=== PATIENT | female | born 1960 | race Caucasian/White ===

== ENCOUNTER 2019-01-18 09:07 | Emergency (ER) | payer BC, OTHER ==
[~2019-01-18] VITALS: Ht 157.5 cm; Wt 78.0 kg
[~2019-01-18 09:07] MED LIST: [UNRECOGNIZED DRUG - REMARK]
[2019-01-18 09:13] VITALS: Ht 157.5 cm; Wt 78.0 kg
[2019-01-18] MEDS ORDERED: KETOROLAC 30 MG INJ IV STA (09:45)
[2019-01-18] MEDS ORDERED: SOD CHLORIDE 0.9% 1,000 ML IV STA (09:45)
[2019-01-18] MEDS ORDERED: ACETAMINOPHEN 500 MG TAB PO STA (09:45)
[2019-01-18] MEDS ORDERED: CIPR500T4 PO (10:58)
[2019-01-18] MEDS ORDERED: IBUP800T48 PO (10:58)
[2019-01-18] MEDS ORDERED: CEFTRIAXONE 1 GM/50 ML (PMX) 50 ML IVPB ONE (11:00)
--- NOTE | 2019-01-18 11:39 | ERD ---
ER Documentation Chief Complaint Chief Complaint fever x 4 days,runny nose before HPI Very pleasant 58-year-old female history of diabetes and hypertension who presents to the emergency room complaining of fever for 4 days. The patient describes persistent fever. She does note a mild runny nose but no cough or congestion. She notes mild urinary urgency and some lumbar back discomfort. She denies any falls or injuries, no recent travel or immobilization. She denies any rash or neck stiffness. ROS All systems reviewed and are negative except as per history of present illness. Medications Home Meds Active Scripts Azithromycin* (Azithromycin*) 250 Mg Tablet, 250 MG PO DAILY, #4 TAB Prov:SUBHASH RODAS MD 01/18/19 Ibuprofen* (Motrin*) 800 Mg Tab, 800 MG PO Q6H PRN for PAIN AND OR ELEVATED TEMP, #30 TAB Prov:SUBHASH RODAS MD 01/18/19 Ciprofloxacin Hcl* (Ciprofloxacin Hcl*) 500 Mg Tablet, 500 MG PO BID for 10 Da ys, TAB Prov:SUBHASH RODAS MD 01/18/19 Reported Medications [No Nick Rx Meds] No Conflict Check 12/14/10 Allergies Allergies: Coded Allergies: No Known Allergy (Verified , 12/05/12) PMhx/Soc Medical and Surgical Hx: pt denies Medical Hx, pt denies Surgical Hx History of Surgery: No Anesthesia Reaction: No Hx Neurological Disorder: No Hx Respiratory Disorders: No Hx Cardiac Disorders: No Hx Psychiatric Problems: No Hx Miscellaneous Medical Probl: No Hx Alcohol Use: No Hx Substance Use: No Hx Tobacco Use: No Smoking Status: Never smoker FmHx Family History: No diabetes Physical Exam Vitals Vital Signs Date Temp Pulse Resp B/P (MAP) Pulse Ox O2 O2 Flow FiO2 Time Delivery Rate 01/18/19 99.5 91 20 102/58 99 Room Air 11:30 (73) 01/18/19 102.3 10:11 01/18/19 102.8 108 18 134/68 95 09:13 (90) Physical Exam General: Well developed, well nourished, no acute distress Head: Normocephalic, atraumatic. Eyes: Pupils equally reactive, EOM intact ENT: Moist mucous membranes Neck: Supple, no lymphadenopathy Respiratory: Lungs clear bilaterally, no distress Cardiovascular: RRR, no murmurs, rubs, or gallops Abdominal: Soft, non-tender, non-distended, no peritoneal signs, no tenderness McBurney's point Back: No CVAT : Deferred MSK: No edema, no unilateral swelling, 5/5 strength Neurologic: Alert and oriented, moving all extremities, normal speech, no focal weakness, no cerebellar signs, no meningismus Skin: No rash Psych: Normal mood Result Diagram: 1960 01/18/19 0959 Results 24 hrs Laboratory Tests Test 01/18/19 09:59 White Blood Count 15.2 10^3/ul Red Blood Count 4.08 10^6/ul Hemoglobin 12.1 g/dl Hematocrit 35.3 % Mean Corpuscular Volume 86.5 fl Mean Corpuscular Hemoglobin 29.7 pg Mean Corpuscular Hemoglobin Concent 34.3 g/dl Red Cell Distribution Width 11.9 % Platelet Count 236 10^3/UL Mean Platelet Volume 9.8 fl Immature Granulocytes % 0.500 % Neutrophils % 85.1 % Lymphocytes % 7.1 % Monocytes % 7.0 % Eosinophils % 0.1 % Basophils % 0.2 % Nucleated Red Blood Cells % 0.0 /100WBC Immature Granulocytes # 0.080 10^3/ul Neutrophils # 13.0 10^3/ul Lymphocytes # 1.1 10^3/ul Monocytes # 1.1 10^3/ul Eosinophils # 0.0 10^3/ul Basophils # 0.0 10^3/ul Nucleated Red Blood Cells # 0.0 10^3/ul Urine Color YELLOW Urine Clarity SLIGHTLY CLOUDY Urine pH 5.0 Urine Specific [place] 1.023 Urine Ketones 2+ mg/dL Urine Nitrite NEGATIVE mg/dL Urine Bilirubin NEGATIVE mg/dL Urine Urobilinogen 1+ mg/dL Urine Leukocyte Esterase 2+ Darlin/ul Urine Microscopic RBC 4 /HPF Urine Microscopic WBC 28 /HPF Urine Transitional Epithelial Cells FEW /HPF Urine Mucus FEW /HPF Urine Hemoglobin 1+ mg/dL Urine Glucose NEGATIVE mg/dL Urine Total Protein NEGATIVE mg/dl Sodium Level 136 mmol/L Potassium Level 3.8 mmol/L Chloride Level 100 mmol/L Carbon Dioxide Level 22 mmol/L Anion Gap 14 Blood Urea Nitrogen 13 mg/dl Creatinine 0.75 mg/dl Est Glomerular Filtrat Rate mL/min > 60 mL/min Glucose Level 173 mg/dl Calcium Level 8.9 mg/dl Current Medications Medications Dose Sig/Ramu Start Time Status Last (Trade) Ordered Route PRN Stop Time Admin Dose Reason Admin Sodium 1,000 ml @ Q1H STAT 01/18/19 DC 01/18/19 Chloride 1,000 mls/hr IV 09:45 10:10 01/18/19 10:44 Ketorolac 30 mg ONCE STAT 01/18/19 DC 01/18/19 Tromethamine IV 09:45 10:10 (Toradol) 01/18/19 09:46 1,000 mg ONCE STAT 01/18/19 DC 01/18/19 Acetaminophen PO 09:45 10:11 (Tylenol 01/18/19 09:46 Tab) Ceftriaxone 50 ml @ ONCE ONCE 01/18/19 DC 01/18/19 Sodium 100 mls/hr IVPB 11:00 11:28 01/18/19 11:29 500 mg ONCE ONCE 01/18/19 01/18/19 Azithromycin PO 12:00 11:50 (Zithromax) 01/18/19 12:01 Procedures/MDM EKG, MONITORS, & DIAGNOSTIC IMAGING: Chest x-ray: I reviewed and interpreted a 1 view of the chest Mediastinum: No enlargement Cardiac silhouette: No cardiomegaly Airspace: Possible right lower lobe infiltrate Bones: No evidence of fracture LAB INTERPRETATION: I reviewed the laboratory testing and it shows WBC of 15 with left shift, normal bicarb, urinalysis concerning for UTI MEDICAL DECISION MAKING: The patient presents with minimal symptoms other than mild rhinorrhea with elevated fever and myalgia. Patient differential is broad, likely viral process but given comorbidities consider possible pneumonia versus urinary tract infection. Benign abdominal exam without concern for acute intra-abdominal process. Patient has no respiratory distress, good oxygen saturations and is otherwise extremely well-appearing. No signs or symptoms concerning for central nervous system infection. Bacteremia and sepsis is extremely unlikely in this case. ER COURSE: * The patient's laboratory testing shows leukocytosis and urinary tract infection. The patient was given IV fluids, antipyretics and ceftriaxone * Patient was additionally found to have a possible right lower lobe pneumonia. Azithromycin was added to her regimen. * Patient has no risk factors for azithromycin resistance pattern. Outpatient azithromycin for committee acquired pneumonia would be reasonable. Cipro will be added for possible pyelonephritis. * Patient is extremely well-appearing in the emergency room setting would likely do well on an outpatient basis. Return precautions were discussed and understood. CONSULTATION: None DISPOSITION PLAN: The patient does not have an identifiable emergent medical condition that warrants inpatient hospitalization at this time. The patient is deemed safe for discharge with outpatient follow-up. We discussed follow up with the patient's primary care doctor within 24 to 48 hours as needed. We also discussed return to the emergency room for worsening symptoms or worsening condition. Outpatient referral: None required Discharge Medications: Azithromycin, ciprofloxacin, Motrin Departure Diagnosis: Primary Impression: Pyelonephritis Additional Impression: Community acquired pneumonia Laterality: right Lung location: lower lobe of lung Qualified Codes: J18.1 - Lobar pneumonia, unspecified organism Condition: Stable Patient Instructions: Pyelonephritis, Female (Adult) Additional Instructions: Call your primary care doctor TOMORROW for an appointment during the next 1 WEEK.Tell the engineering secretary that you were referred from this facility.See the doctor sooner or return here if your condition worsens before your appointment time. SUBHASH RODAS MD Jan 18, 2019 11:39
[2019-01-18] MEDS ORDERED: AZIT250T13 PO (11:42)
[2019-01-18] MEDS ORDERED: AZITHROMYCIN 500 MG TAB PO ONE (12:00)
[2019-01-18] MEDS ORDERED: FLUC150T PO (12:21)
[2019-01-18 12:29] VITALS: BP 111/64; PULSE 92; RESP 19
== END 2019-01-18 12:30 | disposition home or self-care (01) ==
LOC: E/R 09:07
DX: N12 Tubulo-interstitial nephritis, not specified as acute or chronic (principal); E11.9 Type 2 diabetes mellitus without complications; I10 Essential (primary) hypertension; J18.1 Lobar pneumonia, unspecified organism
CPT/HCPCS: 36415; 71045; 80048; 81001; 85025; 87086; 96374; 96375; J0696; J1885; J7030; Z7502; Z7610